=== PATIENT | female | born 1990 | race Caucasian/White ===

== ENCOUNTER 2017-07-12 09:48 | Inpatient (IN) | payer OTHER ==
[~2017-07-12] VITALS: Ht 170.2 cm; Wt 89.8 kg
[2017-07-12] VITALS (15 sets, daily range): BP systolic 110–153; BP diastolic 57–86
[2017-07-12 10:41] LABS: EOSINOPHIL (%) 0.1 % (0-5); HEMATOCRIT 33.5 % (36.0-46.0); IMMATURE GRANULOCYTE (%) 0.7 % (0.0-0.7); IMMATURE GRANULOCYTE COUNT 0.1 K/uL; INSTRUMENT ABS NEUTROPHIL CT 12.6 K/uL; LYMPHOCYTE COUNT 1.8 K/uL (1.0-2.8); MCH 30.2 PG (29.0-34.0); MCHC 33.1 G/DL (30.0-36.0); MCV 91.3 FL (83-99); MEAN PLAT.VOLUME 9.9 uM^3 (9.5-12.4); MONOCYTE (%) 5.7 % (3-12); MONOCYTE COUNT 0.9 K/uL (0-0.8); NEUTROPHIL (%) 81.8 % (45-76); NEUTROPHIL COUNT 12.6 K/uL (1.8-6.4); PLATELET COUNT 237 K/uL (156-360); RBC DIS.WIDTH-CV 13.3 % (11.8-14.6); RBC DIS.WIDTH-SD 43.4 % (39-53); RED BLOOD COUNT 3.67 M/uL (3.80-5.20); WHITE BLOOD COUNT 15.4 K/uL (4.1-10.2)
[2017-07-12] MEDS ORDERED: PRENATAL TABLE1 EAC3 PO (10:51)
[2017-07-12] MEDS ORDERED: FIORICET,ESG1 TABLET PO (10:51)
[2017-07-13 07:48] LABS: EOSINOPHIL (%) 0.3 % (0-5); HEMATOCRIT 27.3 % (36.0-46.0); IMMATURE GRANULOCYTE (%) 0.6 % (0.0-0.7); IMMATURE GRANULOCYTE COUNT 0.1 K/uL; INSTRUMENT ABS NEUTROPHIL CT 9.6 K/uL; LYMPHOCYTE COUNT 2.2 K/uL (1.0-2.8); MCH 30.2 PG (29.0-34.0); MCV 91.6 FL (83-99); MEAN PLAT.VOLUME 9.7 uM^3 (9.5-12.4); MONOCYTE (%) 7.8 % (3-12); NEUTROPHIL (%) 73.9 % (45-76); NEUTROPHIL COUNT 9.6 K/uL (1.8-6.4); PLATELET COUNT 185 K/uL (156-360); RBC DIS.WIDTH-CV 13.3 % (11.8-14.6); RBC DIS.WIDTH-SD 44.7 % (39-53); RED BLOOD COUNT 2.98 M/uL (3.80-5.20)
[2017-07-13 07:53] VITALS: BP 122/73
[2017-07-13] MEDS ORDERED: IBUPROFEN800 MG PO (10:35)
[2017-07-13] MEDS ORDERED: FERROCITE324 MG PO (10:36)
[2017-07-13 14:56] VITALS: BP 122/57
== END 2017-07-13 18:05 | disposition home or self-care (01) | DRG 775 ==
LOC: LDRP-OP 09:48 → 2WEST 09:49 → LDRP-OP 08-12 12:43
PROVIDERS: Advanced Practice Midwife
DX: O70.0 First degree perineal laceration during delivery (principal); Z37.0 Single live birth; Z3A.39 39 weeks gestation of pregnancy; D62 Acute posthemorrhagic anemia; Z68.25 Body mass index [BMI] 25.0-25.9, adult; E66.3 Overweight; O99.214 Obesity complicating childbirth; O99.02 Anemia complicating childbirth; O69.81X0 Labor and delivery complicated by cord around neck, without compression, not applicable or unspecified
CPT/HCPCS: 85025; J0595; J7120